=== PATIENT | male | born 1960 | race Caucasian/White ===

== ENCOUNTER → 2019-11-11 | Day surgery (SDC) | payer OTHER ==
[~2019-11-11] MED LIST: ACETAMINOPHEN 325 MG TABLET PO PRN; ALBUTEROL SULFATE 2.5 MG/3 ML NEBU. NEB PRN; ATROPINE 0.5 MG/5 ML DISP.SYRIN. IV PRN; IV RINGERS SOLUTION,LACTATED 1,000 ML IV SCH; MIDAZOLAM HCL PF 2 MG/2 ML VIAL. IV PRN; ONDANSETRON PF 4 MG/2 ML VIAL. IV PRN; PARO10TA57 PO; PHENOL ORAL SPRAY 177ML BOTTLE. MM PRN; PROPOFOL 20 ML IV ONE; diphenhydrAMINE 50 MG/ML VIAL IV PRN
[2019-11-11 11:14] VITALS: BP 131/87
--- NOTE | 2019-11-12 16:06 | PATHOLOGY ---
[facility] Accession Number: [id number] . 01 Material submitted: . PART A: colon - ASCENDING POLYP BX. Modifiers: ascending PART B: colon - DESCENDING POLYP BX. Modifiers: descending . 01 Clinical history: . CRC screen . 02 Diagnosis: A. Colon biopsies, ascending colon polyp: - Tubular adenoma. . B. Colon biopsy, descending colon polyp: - Tubular adenoma. ([facility] 11/12/2019) [facility] [place] 11/12/2019 0843 Local . 02 Comment: There is no high-grade dysplasia or evidence of malignancy. ([facility] 11/12/2019) . 02 Electronically signed: . Óscar Lovett MD, Pathologist NPI- [id number] . 01 Gross description: . A. The specimen is received in formalin, labeled "Gin, Pranav, ascending polyp BX" and consists of 3 fragments of pink-rodríguez tissue measuring between 0.2 cm and 0.5 cm which are entirely submitted in A1. . B. The specimen is received in formalin, labeled "Gin, Pranav, descending polyp BX" and consists of a fragment of pink-rodríguez tissue measuring 0.5 x 0.2 cm which is entirely submitted in B1. (SDY; 11/11/2019) SYU/SYU 11/11/2019 1553 Local . 02 Pathologist provided ICD-10: D12.2, D12.4 . 02 CPT . 934430, 506304 Specimen Comment: A courtesy copy of this report has been sent to [phone] Specimen Comment: [id number] Specimen Comment: Report sent to / DR ZAVALA Performed at: [address] [place] [address] [address], [place], [place] [id number] MD Julito Rehman MD Phone: [phone] Performed at: [address] [id number] MD Óscar Lovett MD Phone: [phone]
== END | disposition home or self-care (01) ==
LOC: SURG 09:28
PROVIDERS: ATTEND Emergency Medicine
DX: Z12.11 Encounter for screening for malignant neoplasm of colon (principal); K57.30 Diverticulosis of large intestine without perforation or abscess without bleeding; D12.2 Benign neoplasm of ascending colon; D12.4 Benign neoplasm of descending colon; K21.9 Gastro-esophageal reflux disease without esophagitis; F32.9 Major depressive disorder, single episode, unspecified; F41.9 Anxiety disorder, unspecified; Z98.890 Other specified postprocedural states; Z79.899 Other long term (current) drug therapy; Z72.89 Other problems related to lifestyle
CPT/HCPCS: 45380; 88305; J2704; J7120